=== PATIENT | male | born 1945 | race Caucasian/White ===

== ENCOUNTER 2022-07-11 18:07 | Observation (INO) ==
[2022-07-11] MEDS ORDERED: 0.9 % SODIUM CHLORIDE 2,260 ML IV ONE (18:12)
[2022-07-11] MEDS ORDERED: KETOROLAC 30 MG/ML VIAL IV ONE (18:14)
[2022-07-11 18:22] LABS: POC Calcium, Ionized 1.24 (1.16-1.32); POC Potassium 4.4 (3.3-5.1)
--- NOTE | 2022-07-11 18:24 | Emergency Department Note ---
Abdominal Pain HPI General Chief Complaint: Abdominal Pain Stated Complaint: abdominal pain Time Seen by Provider: 07/11/22 18:12 Source: patient Mode of arrival: ambulatory Limitations: no limitations History of Present Illness HPI Narrative: Narrative: Patient presents ED with complaints of worsening abdominal pain x1 day. Pain is rated 9/10 described as sharp and achy. Denies fever, chills, nausea, vomiting, diarrhea, constipation, dysuria, hematuria, urinary frequency, melena, medic easier, hematemesis, cardiac chest pain, shortness of breath, known sick contacts. Patient states that he last ate at noon this morning. Denies any [id number]-nufrbhu medication. Patient denies any other alleviating or ag gravating factors. Last bowel movement was this morning was normal caliber. Related Data Home Medications Medication Instructions Recorded Confirmed calcium carbonate-vitamin D3 500 1 cap PO QDAY 07/11/22 07/11/22 mg (1,250 mg)-50 unit capsule celecoxib 200 mg capsule 1 cap PO QDAY 07/11/22 07/11/22 hydrocodone 10 mg-acetaminophen 1 tab PO BID 07/11/22 07/11/22 325 mg tablet lisinopril 40 mg tablet 1 tab PO QDAY 07/11/22 07/11/22 rosuvastatin 20 mg tablet 1 tab PO QDAY 07/11/22 07/11/22 Allergies Allergy/AdvReac Type Severity Reaction Status Date / Time No Known Drug Allergies Allergy Unverified 07/11/22 18:10 Review of Systems ROS ROS Narrative: Narrative: All systems ED: reviewed and negative except as stated. [facility] Narrative Patient History Narrative: Narrative: Medical/Surgical/Family History All Active Problems (Updated 07/11/22 @ 19:32 by Keven Oneill DO) Sepsis (Acute) Acute appendicitis (Acute) Social History Smoking Status: Former smoker Exam Narrative Narrative: Narrative: General Limitations: no limitations General appearance: Present alert ENT ENT: Present normal oropharynx and mucous membranes moist Respiratory Respiratory: Present normal lung sounds bilaterally; Absent respiratory distress Cardiovascular Cardiovascular: Present normal rhythm and tachycardia Adbominal Abdominal: Present soft, tenderness and guarding Expanded Abdominal Abdominal Tenderness: Present RUQ, RLQ and nyla umbilical Back Back: Absent CVA tenderness (R) or CVA tenderness (L) Neurological Neurological: Present oriented X3 and normal gait Psychiatric Psychiatric: Present normal affect and normal mood Skin Skin: Present warm (WNL) and intact Course Course Course Narrative: Patient was evaluated for abdominal pain. Labs showed that he had elevated white cell count. He was tachycardic and febrile here in the ED. CT abdomen pelvis revealed acute appendicitis. Patient does meet sepsis criteria. He was started on IV fluids, Rocephin and Flagyl for antibiotics. Case discussed with on-call surgeon, Dr. Harris, who recommend the patient be admitted to the hospital, allowed to have liquid diet until midnight then n.p.o. and started on IV antibiotics. Plan was discussed with patient who expressed verbal unde rstanding and agreement. Consultations Consultation #1: Case discussed with on-call surgeon, Dr. Harris, who recommend the patient be admitted to the hospital, allowed to have liquid diet until midnight then n.p.o. and started on IV antibiotics. Time: 19:30 Vital Signs Vital signs: Vital Signs Temperature 100.3 F H 07/11/22 18:08 Pulse Rate 104 H 07/11/22 18:08 Respiratory Rate 20 07/11/22 18:08 Blood Pressure 167/96 07/11/22 18:08 Pulse Oximetry (%) 99 07/11/22 18:08 Oxygen Delivery Method 07/11/22 18:08 Temperature 100.3 F H 07/11/22 18:08 Pulse Rate 87 07/11/22 21:01 Respiratory Rate 23 H 07/11/22 21:01 Blood Pressure 117/80 07/11/22 21:01 Pulse Oximetry (%) 93 07/11/22 21:01 Oxygen Delivery Method 07/11/22 18:08 [facility] MDM Narrative Medical decision making narrative: Narrative: Sepsis Sepsis Identified: Yes Time Zero: 1814 Differential Diagnosis Differential Diagnosis: Appendicitis, small bowel obstruction, kidney stone Medical Records Medical records reviewed: Yes I reviewed the patient's medical records. Lab Data Lab results reviewed: Yes I reviewed the patient's lab results. Result diagrams: 07/11/22 18:15 Labs: Lab Results 07/11/22 07/11/22 07/11/22 Range/Units 18:15 18:15 18:15 WBC 17.5 H (4.5-11.0) K/mcL RBC 3.99 L (4.63-6.08) M/mcL Hgb 14.2 (13.7-17.5) g/dL Hct 42.6 (40.1-51.0) % POC Hct (41-55) MCV 106.8 H (80.0-100.0) fL MCH 35.6 H (26.0-34.0) pg MCHC 33.3 (31.0-36.0) g/dL RDW 12.0 (11.5-14.5) % Plt Count 159 (140-440) K/mcL MPV 10.1 (7.4-10.4) fL Immature Gran % (Auto) 0.4 (0.0-0.5) % Neut % (Auto) 79.9 H (38.0-78.0) % Lymph % (Auto) 8.1 L (15.5-49.0) % [place] % (Auto) 10.9 (1.0-12.0) % Eos % (Auto) 0.3 (0.0-7.0) % Baso % (Auto) 0.4 (0.0-2.0) % Lymph # (Auto) 1.42 L (1.50-4.80) K/mcL [place] # (Auto) 1.91 H (0.10-0.90) K/mcL Eos # (Auto) 0.05 (0.00-0.70) K/mcL Baso # (Auto) 0.07 (0.00-0.30) K/mcL Immature Gran # 0.07 H (0.00-0.05) K/mcl Absolute Neutrophils 13.99 H (1.80-8.00) K/mcL POC VBG pH (7.32-7.42) POC VBG pCO2 at Temp (41-51) POC VBG pO2 (25-40) POC VBG HCO3 (24-28) POC VBG Total CO2 (25-29) POC Venous O2 Sat (40-70) POC VBG Base Excess (-2-2) VBG Lactic Acid (0.5-2) POC Sodium (133-145) POC Potassium (3.3-5.1) POC Chloride (96-108) POC Total CO2 (22-30) POC BUN (6-20) POC Creatinine (0.6-1.2) POC Glucose (70-105) POC WB Ioniz Calcium (1.16-1.32) Total Bilirubin (0.1-1.0) mg/dL Direct Bilirubin (<0.3) mg/dL AST (<40) U/L ALT (<40) U/L Alkaline Phosphatase (39-117) U/L Total Protein (5.9-8.4) gm/dL Albumin (3.2-5.2) gm/dL Globulin (2.2-3.7) gm/dL Procalcitonin 0.13 H (<0.10) ng/mL Ethyl Alcohol mg/dL < 10.0 mg/dL Ethyl Alcohol g/dL < 0.010 (<0.010) gm/dL 07/11/22 07/11/22 07/11/22 Range/Units 18:15 18:18 18:19 WBC (4.5-11.0) K/mcL RBC (4.63-6.08) M/mcL Hgb (13.7-17.5) g/dL Hct (40.1-51.0) % POC Hct 47.0 (41-55) MCV (80.0-100.0) fL MCH (26.0-34.0) pg MCHC (31.0-36.0) g/dL RDW (11.5-14.5) % Plt Count (140-440) K/mcL MPV (7.4-10.4) fL Immature Gran % (Auto) (0.0-0.5) % Neut % (Auto) (38.0-78.0) % Lymph % (Auto) (15.5-49.0) % [place] % (Auto) (1.0-12.0) % Eos % (Auto) (0.0-7.0) % Baso % (Auto) (0.0-2.0) % Lymph # (Auto) (1.50-4.80) K/mcL [place] # (Auto) (0.10-0.90) K/mcL Eos # (Auto) (0.00-0.70) K/mcL Baso # (Auto) (0.00-0.30) K/mcL Immature Gran # (0.00-0.05) K/mcl Absolute Neutrophils (1.80-8.00) K/mcL POC VBG pH 7.38 (7.32-7.42) POC VBG pCO2 at Temp 41.0 (41-51) POC VBG pO2 24 L (25-40) POC VBG HCO3 24.1 (24-28) POC VBG Total CO2 25.0 (25-29) POC Venous O2 Sat 42.0 (40-70) POC VBG Base Excess -1.0 (-2-2) VBG Lactic Acid 1.8 (0.5-2) POC Sodium 137 (133-145) POC Potassium 4.4 (3.3-5.1) POC Chloride 104 (96-108) POC Total CO2 23.0 (22-30) POC BUN 17 (6-20) POC Creatinine 1.0 (0.6-1.2) POC Glucose 125 H (70-105) POC WB Ioniz Calcium 1.24 (1.16-1.32) Total Bilirubin 1.1 H (0.1-1.0) mg/dL Direct Bilirubin 0.3 H (<0.3) mg/dL AST 28 (<40) U/L ALT 27 (<40) U/L Alkaline Phosphatase 57 (39-117) U/L Total Protein 7.5 (5.9-8.4) gm/dL Albumin 4.5 (3.2-5.2) gm/dL Globulin 3.0 (2.2-3.7) gm/dL Procalcitonin (<0.10) ng/mL Ethyl Alcohol mg/dL mg/dL Ethyl Alcohol g/dL (<0.010) gm/dL ED POC Tests ED POC Tests: STUART - Influenza A Negative STUART - Influenza B Negative STUART - SARS Antigen Negative EKG Data EKG #1: EKG attestation: Yes I reviewed and interpreted this EKG. EKG shows normal: sinus rhythm Rate: normal (96) Rhythm: NSR Acra/QRS: normal Heart block present: None ST segment elevation in: None ST segment depression in: None QTc: normal QRS morphology: Present normal Interpretation: no acute changes Core Measures AMI Core Measures Followed: Yes Discharge Plan Patient/Caregiver Discharge Instructions Pt seen by [employer] INSTRUCTOR/PA only: No Clinical Impression: Sepsis Qualifiers: Sepsis type: sepsis due to unspecified organism Sepsis acute organ dysfunction status: without acute organ dysfunction Qualified Code(s): A41.9 - Sepsis, unspecified organism Acute appendicitis Qualifiers: Acute appendicitis type: unspecified acute appendicitis type Qualified Code(s): K35.80 - Unspecified acute appendicitis Patient Disposition: Xfer As Outpt/Obs ([facility]) Condition: Good Follow up with: Jamey Garcia DO [Primary Care Provider] - Prescriptions: No Action celecoxib 200 mg capsule 1 cap PO QDAY hydrocodone-acetaminophen 10-325 mg tablet 1 tab PO BID lisinopril 40 mg tablet 1 tab PO QDAY rosuvastatin 20 mg tablet 1 tab PO QDAY Calcium With Vitamin D3 500 mg(1,250mg) -50 unit Capsule 1 cap PO QDAY
[2022-07-11] MEDS: fentaNYL 100 MCG/2 ML VIAL IV ONE (18:34)
[2022-07-11 18:55] LABS: Basophils # (Auto) 0.07 K/mcL (0.00-0.30); Basophils % (Auto) 0.4 % (0.0-2.0); Eosinophils # (Auto) 0.05 K/mcL (0.00-0.70); Eosinophils % (Auto) 0.3 % (0.0-7.0); Hematocrit 42.6 % (40.1-51.0); Hemoglobin 14.2 g/dL (13.7-17.5); Lymphocytes # (Auto) 1.42 K/mcL (1.50-4.80); Lymphocytes % (Auto) 8.1 % (15.5-49.0); Mean Cell Volume 106.8 fL (80.0-100.0); Mean Corpuscular HGB Conc 33.3 g/dL (31.0-36.0); Mean Platelet Volume 10.1 fL (7.4-10.4); Monocytes # (Auto) 1.91 K/mcL (0.10-0.90); Monocytes % (Auto) 10.9 % (1.0-12.0); Neutrophils % (Auto) 79.9 % (38.0-78.0); Platelet Count 159 K/mcL (140-440); RBC 3.99 M/mcL (4.63-6.08); WBC 17.5 K/mcL (4.5-11.0)
[2022-07-11 19:11] LABS: Alcohol, Blood < 10.0 mg/dL; Alcohol,Blood < 0.010 gm/dL (<0.010)
--- NOTE | 2022-07-11 19:15 | XRay Report ---
CLINICAL INFORMATION: Tachycardia COMPARISON: 08/03/2021 TECHNIQUE: Portable FINDINGS: The heart size, mediastinum and pulmonary vessels are unremarkable. The lungs are clear. There are no effusions. The bones and soft tissues are within normal limits. IMPRESSION: Normal chest. Interpreted and Authenticated by: Kentrell Jackson 07/11/22
[2022-07-11 19:19] LABS: ALT/SGPT 27 U/L (<40); AST/SGOT 28 U/L (<40); Albumin 4.5 gm/dL (3.2-5.2); Alkaline Phosphatase 57 U/L (39-117); Bilirubin,Direct 0.3 mg/dL (<0.3); Bilirubin,Total 1.1 mg/dL (0.1-1.0)
[2022-07-11] MEDS ORDERED: metroNIDAZOLE 500 MG/100 ML BAG IV ONE (19:27)
[2022-07-11] MEDS ORDERED: cefTRIAXone 2 GM in DEXTROSE 5% IN WATER 50 ML IV ONE (19:27)
--- NOTE | 2022-07-11 19:27 | Cat Scan Report ---
CLINICAL INFORMATION: Right lower quadrant pain and fever COMPARISON: None. TECHNIQUE: 0.625 mm helical slices were obtained from the mid heart through the subtrochanteric regions. Following reconstruction, 2.5 mm sagittal, coronal and axial reformatted images were processed and reviewed at bone and soft tissue windows.The exam was performed using radiation dose optimization techniques including, but not limited to, automated exposure control, adjustment of the mA and/or kV according to patient size and use of iterative reconstruction technique. FINDINGS: The lung bases show chronic bronchitis and scattered fibrosis. No infiltrates or effusions. The visualized heart is grossly normal. Abdominal images show the noncontrasted gallbladder contains high density material layering dependently. This may represent multiple tiny small stones. Gallbladder is, otherwise, normal as no wall thickening or pericholecystic fluid to suggest cholecystitis. Intrahepatic and common bile ducts are normal caliber: CBD is 6 mm. The noncontrasted liver, both adrenal glands, spleen, pancreas and aorta are normal in size, configuration and attenuation without focal lesion. 5 cm simple cyst seen inferior pole the left kidney 1.9 cm simple simple cyst seen inferior pole the right kidney. There is a 10 mm hyperdense cyst, or less likely, solid lesion in the superior pole of the left kidney. A 3 mm nonobstructing stone is seen within the mid left knee. There is no free air, free fluid or adenopathy Pelvic images show moderate prostate enlargement with transverse dimension of 5.5 cm. There is mild diffuse wall thickening urinary bladder suggesting chronic bladder outlet narrowing due to prostatism. Multiple sigmoid diverticula appreciated, but no evidence of diverticulitis. The remaining large bowel is normal. The inferior pericecal appendix is moderately dilated (diameter 12 mm) with diffuse wall thickening with periappendiceal phlegmon most prominent region in the tip region. A few appendicoliths are seen within the lumen. Findings compatible with simple appendicitis. Small bowel and stomach are grossly normal. Bone windows show L5-S1 anterior/posterior fusion with 10 mm L5 anterior subluxation. Chronic bilateral spondylitic defects noted. Severe degenerative disc disease L3-4, L4-5 and L5-S1 IMPRESSION: 1. Appendicitis. Appendix is located in the inferior/ lateral pericecal region. 2. Possible cholelithiasis. Suggest abdominal ultrasound to evaluate the gallbladder and also the hyperdense cyst versus solid lesion superior pole the left kidney 3. Bilateral renal cysts 4. Chronic bronchitis with scattered fibrosis both lung bases. 5. Moderate prostate enlargement Interpreted and Authenticated by: Kentrell Jackson 07/11/22
[2022-07-11] MEDS ORDERED: ONDANSETRON 4 MG/2 ML VIAL IV ONE (19:35)
[2022-07-11] MEDS ORDERED: NALOXONE HCL 0.4 MG/ML VIAL IV PRN (19:35)
[2022-07-11] MEDS ORDERED: ACETAMINOPHEN 1,000 MG/100 ML BAG IV PRN (20:42)
[2022-07-11] MEDS ORDERED: ONDANSETRON 4 MG/2 ML VIAL IV PRN (20:42)
[2022-07-11 21:34] LABS: Prothrombin Time 13.2 sec (11.9-14.5)
[2022-07-11] MEDS: morphine 2 MG/ML VIAL IV PRN (21:53)
[2022-07-11] MEDS: 0.9 % SODIUM CHLORIDE 1,000 ML IV SCH (21:54)
[2022-07-12] MEDS: morphine 2 MG/ML VIAL IV PRN ×7 (01:57→22:01)
[2022-07-12] MEDS: metroNIDAZOLE 500 MG/100 ML BAG IV SCH ×4 (03:50→22:51)
[2022-07-12] MEDS: 0.9 % SODIUM CHLORIDE 1,000 ML IV SCH ×3 (05:22→16:14)
[2022-07-12 05:49] LABS: Basophils # (Auto) 0.05 K/mcL (0.00-0.30); Basophils % (Auto) 0.5 % (0.0-2.0); Eosinophils # (Auto) 0.13 K/mcL (0.00-0.70); Eosinophils % (Auto) 1.3 % (0.0-7.0); Hematocrit 35.9 % (40.1-51.0); Hemoglobin 11.6 g/dL (13.7-17.5); Lymphocytes # (Auto) 1.23 K/mcL (1.50-4.80); Lymphocytes % (Auto) 11.8 % (15.5-49.0); Mean Cell Volume 108.5 fL (80.0-100.0); Mean Corpuscular HGB Conc 32.3 g/dL (31.0-36.0); Mean Platelet Volume 9.8 fL (7.4-10.4); Monocytes # (Auto) 1.19 K/mcL (0.10-0.90); Monocytes % (Auto) 11.4 % (1.0-12.0); Neutrophils % (Auto) 74.7 % (38.0-78.0); Platelet Count 119 K/mcL (140-440); RBC 3.31 M/mcL (4.63-6.08); Red Cell Distribution Width 12.4 % (11.5-14.5); WBC 10.4 K/mcL (4.5-11.0)
[2022-07-12 06:08] LABS: ALT/SGPT 17 U/L (<40); AST/SGOT 18 U/L (<40); Albumin 3.3 gm/dL (3.2-5.2); Albumin/Globulin Ratio 1.4 (1.0-2.3); Alkaline Phosphatase 40 U/L (39-117); Bilirubin,Direct 0.2 mg/dL (<0.3); Bilirubin,Total 0.8 mg/dL (0.1-1.0); Blood Urea Nitrogen 15 mg/dL (8-23); Calcium 8.3 mg/dL (8.6-10.4); Carbon Dioxide 22 mmol/L (22-30); Chloride 105 mmol/L (96-108); Globulin 2.4 gm/dL (2.2-3.7); Glomerular Filtration Rate 82; Glucose 98 mg/dL (70-105); Lactate Dehydrogenase 118 U/L (135-225); Phosphorous 3.2 mg/dL (2.5-4.5); Triglycerides 58 mg/dL (<150); Uric Acid 4.9 mg/dL (2.5-8.0)
[2022-07-12] MEDS ORDERED: cefTRIAXone 2 GM in DEXTROSE 5% IN WATER 50 ML IV SCH (07:00)
[2022-07-12] MEDS ORDERED: cefTRIAXone 2 GM VIAL ONE (07:22)
--- NOTE | 2022-07-12 07:51 | General Surg History&Physical ---
HPI History of Present Illness Patient information: Note initiated : 07/12/22 at 7:42 am Service Date, if different from initiated Date: [] Patient: Jamey Thrasher a 76 y/o M admitted on 07/11/22 for abdominal pain. Chief Complaint: [] Chief complaint: Right lower quadrant pain History of present illness: Mr. Thrasher is a 76 year old M with acute onset of right lower quadrant abdominal pain on Tuesday night after his evening meal. The pain became progressively worse yesterday and he was seen in the emergency room late last evening. He was noted to have a white count of 17,000 and CVAT evidence of acute appendicitis with appendicolith. He was admitted to observation and has been on antibiotics. White blood count has returned to normal. He is afebrile at this time. Patient never had nausea or vomiting. He has not had similar pain in the past. 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 Father , World War II casualty No problems noted. Social History smoking status: Former smoker MEDS/ALLERGIES Home Medications and Allergies Home Medications Medication Instructions Recorded Confirmed Type calcium carbonate-vitamin D3 500 1 cap PO QDAY 07/11/22 07/11/22 History mg (1,250 mg)-50 unit capsule celecoxib 200 mg capsule 1 cap PO QDAY 07/11/22 07/11/22 History hydrocodone 10 mg-acetaminophen 1 tab PO BID PRN Pain 07/11/22 07/11/22 History 325 mg tablet lisinopril 40 mg tablet 1 tab PO QDAY 07/11/22 07/11/22 History rosuvastatin 20 mg tablet 1 tab PO QDAY 07/11/22 07/11/22 History Allergies Allergy/AdvReac Type Severity Reaction Status Date / Time No Known Drug Allergies Allergy Verified 07/11/22 21:49 Physical Examination Vital Signs Vital signs: Temp Pulse Resp BP Pulse Ox O2 Del Method 97.9 F 83 18 117/73 96 07/12/22 07:26 07/12/22 07:26 07/12/22 07:26 07/12/22 07:26 07/12/22 07:26 07/12/22 07:26 General physical appearance General physical exam: well developed, well nourished, no distress and moderate pain Eyes Eye exam: PERRL and normal ocular movement ENT ENT exam: normal mucosa Head Head exam IM: Present atraumatic, normal inspection and normocephalic Neck Neck exam: no masses, no bruits, trachea midline, no lymphadenopathy and no venous distension Cardiovascular Cardiovascular exam IM: Present normal rate and rhythm, RRR, +S1 and +S2; Absent JVD or tachycardia Respiratory Respiratory exam: normal expansion, normal respiratory effort and clear to auscultation Abdomen Abdomen: Present tender (Right lower quadrant moderate tenderness with guarding) Integumentary Integumentary: Present no rash, no growths, no abnormal pigmentation and other Neurologic Neurologic: Present normal coordination and normal sensation Musculoskeletal Musculoskeletal: Present normal gait and normal posture Psychiatric Psychiatric: Present oriented to time, oriented to person, oriented to place, speech is normal and memory intact Results Labs Result diagrams: 07/12/22 05:15 07/12/22 05:15 Labs: Abnormal lab results 07/11/22 07/11/22 07/11/22 Range/Units 18:15 18:15 18:15 WBC 17.5 H (4.5-11.0) K/mcL RBC 3.99 L (4.63-6.08) M/mcL Hgb (13.7-17.5) g/dL Hct (40.1-51.0) % MCV 106.8 H (80.0-100.0) fL MCH 35.6 H (26.0-34.0) pg Plt Count (140-440) K/mcL Neut % (Auto) 79.9 H (38.0-78.0) % Lymph % (Auto) 8.1 L (15.5-49.0) % Lymph # (Auto) 1.42 L (1.50-4.80) K/mcL [place] # (Auto) 1.91 H (0.10-0.90) K/mcL Immature Gran # 0.07 H (0.00-0.05) K/mcl Absolute Neutrophils 13.99 H (1.80-8.00) K/mcL POC VBG pO2 (25-40) POC Glucose (70-105) Calcium (8.6-10.4) mg/dL Total Bilirubin 1.1 H (0.1-1.0) mg/dL Direct Bilirubin 0.3 H (<0.3) mg/dL Lactate Dehydrogenase (135-225) U/L Total Protein (5.9-8.4) gm/dL Procalcitonin 0.13 H (<0.10) ng/mL 07/11/22 07/11/22 07/12/22 Range/Units 18:18 18:19 05:15 WBC (4.5-11.0) K/mcL RBC 3.31 L (4.63-6.08) M/mcL Hgb 11.6 L (13.7-17.5) g/dL Hct 35.9 L (40.1-51.0) % MCV 108.5 H (80.0-100.0) fL MCH 35.0 H (26.0-34.0) pg Plt Count 119 L (140-440) K/mcL Neut % (Auto) (38.0-78.0) % Lymph % (Auto) 11.8 L (15.5-49.0) % Lymph # (Auto) 1.23 L (1.50-4.80) K/mcL [place] # (Auto) 1.19 H (0.10-0.90) K/mcL Immature Gran # (0.00-0.05) K/mcl Absolute Neutrophils (1.80-8.00) K/mcL POC VBG pO2 24 L (25-40) POC Glucose 125 H (70-105) Calcium (8.6-10.4) mg/dL Total Bilirubin (0.1-1.0) mg/dL Direct Bilirubin (<0.3) mg/dL Lactate Dehydrogenase (135-225) U/L Total Protein (5.9-8.4) gm/dL Procalcitonin (<0.10) ng/mL 07/12/22 Range/Units 05:15 WBC (4.5-11.0) K/mcL RBC (4.63-6.08) M/mcL Hgb (13.7-17.5) g/dL Hct (40.1-51.0) % MCV (80.0-100.0) fL MCH (26.0-34.0) pg Plt Count (140-440) K/mcL Neut % (Auto) (38.0-78.0) % Lymph % (Auto) (15.5-49.0) % Lymph # (Auto) (1.50-4.80) K/mcL [place] # (Auto) (0.10-0.90) K/mcL Immature Gran # (0.00-0.05) K/mcl Absolute Neutrophils (1.80-8.00) K/mcL POC VBG pO2 (25-40) POC Glucose (70-105) Calcium 8.3 L (8.6-10.4) mg/dL Total Bilirubin (0.1-1.0) mg/dL Direct Bilirubin (<0.3) mg/dL Lactate Dehydrogenase 118 L (135-225) U/L Total Protein 5.7 L (5.9-8.4) gm/dL Procalcitonin (<0.10) ng/mL Diabetes panel 07/11/22 07/12/22 Range/Units 18:15 05:15 Sodium 135 (133-145) mmol/L Potassium 4.3 (3.3-5.1) mmol/L Chloride 105 (96-108) mmol/L Carbon Dioxide 22 (22-30) mmol/L BUN 15 (8-23) mg/dL Creatinine 0.9 (0.7-1.2) mg/dL Glucose 98 (70-105) mg/dL Calcium 8.3 L (8.6-10.4) mg/dL AST 28 18 (<40) U/L ALT 27 17 (<40) U/L Alkaline Phosphatase 57 40 (39-117) U/L Total Protein 7.5 5.7 L (5.9-8.4) gm/dL Albumin 4.5 3.3 (3.2-5.2) gm/dL Triglycerides 58 (<150) mg/dL Calcium panel 07/11/22 07/12/22 Range/Units 18:15 05:15 Calcium 8.3 L (8.6-10.4) mg/dL Phosphorus 3.2 (2.5-4.5) mg/dL Albumin 4.5 3.3 (3.2-5.2) gm/dL Pituitary panel 07/12/22 Range/Units 05:15 Sodium 135 (133-145) mmol/L Potassium 4.3 (3.3-5.1) mmol/L Chloride 105 (96-108) mmol/L Carbon Dioxide 22 (22-30) mmol/L BUN 15 (8-23) mg/dL Creatinine 0.9 (0.7-1.2) mg/dL Glucose 98 (70-105) mg/dL Calcium 8.3 L (8.6-10.4) mg/dL Adrenal panel 07/11/22 07/12/22 Range/Units 18:15 05:15 Sodium 135 (133-145) mmol/L Potassium 4.3 (3.3-5.1) mmol/L Chloride 105 (96-108) mmol/L Carbon Dioxide 22 (22-30) mmol/L BUN 15 (8-23) mg/dL Creatinine 0.9 (0.7-1.2) mg/dL Glucose 98 (70-105) mg/dL Calcium 8.3 L (8.6-10.4) mg/dL Total Bilirubin 1.1 H 0.8 (0.1-1.0) mg/dL AST 28 18 (<40) U/L ALT 27 17 (<40) U/L Alkaline Phosphatase 57 40 (39-117) U/L Total Protein 7.5 5.7 L (5.9-8.4) gm/dL Albumin 4.5 3.3 (3.2-5.2) gm/dL All other labs normal. A/P Assessment and plan (1) Acute appendicitis: Status: Acute Qualifiers: Acute appendicitis type: unspecified acute appendicitis type Qualified Code(s): K35.80 - Unspecified acute appendicitis (2) Hypertension: Status: Acute Plan Continue antibiotics Continue n.p.o. Laparoscopic appendectomy later today Sepsis Sepsis Identified: No Time Spent With Patient Time: Total time spent is greater than 50% in coordination of care (as documented) at patient's floor/unit and/or counseling patient:
--- NOTE | 2022-07-12 08:59 | EKG ---
[facility] Minor Care Test Date: 2022-07-11 Pat Name: Jamey Thrasher Department: ED Room: Gender: Male [employer]: vania : 1945 Requested By: Keven Oneill Order Number: [id number] Reading MD: Kentrell Aiken M.D. Measurements Intervals [place] Rate: 96 P: 54 OR: 147 QRS: 23 QRSD: 89 T: 60 QT: 354 QTc: 448 Interpretive Statements Sinus rhythm Low voltage, extremity leads Electronically Signed On 07-12-2022 8:58:34 PDT by Kentrell Aiken M.D. /store/[email or web address]/[id number]
[2022-07-12] MEDS ORDERED: IPRATROPIUM/ALBUTEROL 3 ML AMPUL.NEB NEB PRN ×2 (09:08→14:41)
[2022-07-12] MEDS ORDERED: PROPOFOL 200 MG/20 ML VIAL IV ONE (12:55)
[2022-07-12] MEDS ORDERED: ONDANSETRON 4 MG/2 ML VIAL ONE (12:55)
[2022-07-12] MEDS ORDERED: SUGAMMADEX SODIUM 200 MG/2 ML VIAL IV ONE (12:55)
[2022-07-12] MEDS ORDERED: SUCCINYLCHOLINE 20 MG/ML ML IV ONE (12:55)
[2022-07-12] MEDS ORDERED: DEXAMETHASONE 10 MG/ML VIAL ONE (12:55)
[2022-07-12] MEDS ORDERED: ROCURONIUM 10 MG/ML ML IV ONE (12:55)
[2022-07-12] MEDS ORDERED: fentaNYL 100 MCG/2 ML VIAL IV ONE (12:55)
[2022-07-12] MEDS ORDERED: KETAMINE 50 MG/ML Syringe (ANEST) IV ONE (12:55)
[2022-07-12] MEDS ORDERED: GLYCOPYRROLATE 0.2 MG/ML VIAL IV ONE (12:55)
[2022-07-12] MEDS ORDERED: LIDOCAINE HCL/PF 100 MG/5 ML SYRINGE IV ONE (12:55)
[2022-07-12] MEDS ORDERED: PHENYLephrine 1 MG/10 ML SYRINGE (ANEST) ONE (12:55)
--- NOTE | 2022-07-12 14:31 | Brief Operative Note ---
Brief Operative Note Date of procedure: 07/12/22 Pre-op diagnosis: ACUTE APPENDICITIS Post-op diagnosis: other (ACUTE APPENDICITIS) Procedure: LAPAROSCOPIC APPENDECTOMY Grafts/Implants: No (MARYANNE DRAINX1) Anesthesia: GETA Findings: ACUTE GANGRENOUS APPENDICITIS Complications: none Surgeon: Kayla Harris Estimated blood loss (cc): 30 Specimens Removed/Pathology: other (APPENDIX) Condition: stable Disposition: PACU
[2022-07-12] MEDS ORDERED: HYDROmorphone 0.5 MG/0.5 ML SYRINGE IV PRN (14:41)
[2022-07-12] MEDS ORDERED: MEPERIDINE 25 MG/ML VIAL IV PRN (14:41)
[2022-07-12] MEDS ORDERED: ACETAMINOPHEN 1,000 MG/100 ML BAG IV ONE (14:41)
[2022-07-12] MEDS: fentaNYL 100 MCG/2 ML VIAL IV ONE (15:15)
[2022-07-12] MEDS: fentaNYL 100 MCG/2 ML VIAL IV PRN ×4 (15:15→15:34)
[2022-07-12] MEDS ORDERED: PIPERACILLIN SODIUM/TAZOBACTAM 3.375 GM in DEXTROSE 5% IN WATER 50 ML IV SCH (16:19)
[2022-07-12] MEDS: PIPERACILLIN SODIUM/TAZOBACTAM 3.375 GM in DEXTROSE 5% IN WATER 50 ML IV SCH ×2 (16:35→21:12)
[2022-07-12] MEDS ORDERED: CALCIUM CARBONATE 500 MG TAB.CHEW CHEWED PRN (20:39)
[2022-07-13] MEDS: 0.9 % SODIUM CHLORIDE 1,000 ML IV SCH (00:48)
[2022-07-13] MEDS: PIPERACILLIN SODIUM/TAZOBACTAM 3.375 GM in DEXTROSE 5% IN WATER 50 ML IV SCH ×3 (00:48→12:17)
[2022-07-13] MEDS: morphine 2 MG/ML VIAL IV PRN ×3 (00:49→10:35)
[2022-07-13] MEDS: metroNIDAZOLE 500 MG/100 ML BAG IV SCH (06:10)
[2022-07-13] MEDS ORDERED: PANTOPRAZOLE 40 MG TABLET PO SCH (07:30)
[2022-07-13] MEDS: LISINOPRIL 20 MG TABLET PO SCH ×2 (08:37→08:39)
--- NOTE | 2022-07-13 13:43 | Discharge Summary ---
Discharge Provider Provider IMPORTANT FOLLOW-UP INFORMATION FOR PCP: Patient information: Note initiated : 07/13/22 at 1:36 pm Service Date, if different from initiated Date: [] Patient: Jamey Thrasher 76 y/o M admitted on 07/11/22 for abdominal pain. Chief Complaint: [] Date of admission: 07/11/22 21:13 Discharge date: 07/13/22 Primary care physician: Jamey Garcia DO Admitting clinician: Kayla Harris Attending physician on admission: Kayla Harris Attending physician on discharge: Kayla Harris Discharging clinician: Kayla Harris COURSE Hospital Course Hospital course: 76-year-old male who was admitted on 10 July 2022 with acute abdominal pain leukocytosis and evidence of acute appendicitis. She was treated during the night and had laparoscopic appendectomy on yesterday. He was found to have acute gangrenous appendicitis. Because of acute severe inflammation in the pericecal space drain was placed. He has had some bloody drainage but otherwise has done well. He is stable for discharge and will be followed up in the office in 2 weeks. Discharge diagnosis: Acute gangrenous appendicitis Secondary discharge diagnosis: Hypertension Reason for admission: Acute appendicitis Procedures: Laparoscopic appendectomy Pertinent studies/significant findings: CT of abdomen and pelvis with IV contrast Complications: None Time Spent with Patient Time attestation: Total time spent providing and/or coordinating discharge services: Time spent: Less than 30 minutes Physical Examination Vital Signs Vital signs: Temp Pulse Resp BP Pulse Ox O2 Del Method O2 Flow Rate 97.5 F 56 L 22 117/65 98 0 07/13/22 12:07/13/22 12:07/13/22 12:07/13/22 12:07/13/22 12:07/13/22 12:07/12/22 15:35 General physical appearance General physical exam: well developed, well nourished, no distress and moderate pain Eyes Eye exam: PERRL and normal ocular movement ENT ENT exam: normal mucosa and decreased hearing Head Head exam IM: Present atraumatic, normal inspection and normocephalic Neck Neck exam: no masses, no bruits, trachea midline, no lymphadenopathy and no venous distension Cardiovascular Cardiovascular exam IM: Present normal rate and rhythm, RRR, +S1 and +S2; Absent JVD Respiratory Respiratory exam: normal expansion, normal respiratory effort and clear to auscultation Abdomen Abdomen: Present tender (Mild tenderness around port sites) and bowel sounds (Normal active bowel sounds) Integumentary Integumentary: Present no rash, no growths and no abnormal pigmentation Neurologic Neurologic: Present normal coordination and normal sensation Musculoskeletal Musculoskeletal: Present normal gait and normal posture Psychiatric Psychiatric: Present oriented to time, oriented to person, oriented to place, speech is normal and memory intact Discharge Plan Patient/Caregiver Discharge Instructions Activity: increase activity as tolerated Diet: Regular Diet Instructions: Ciprofloxacin (By mouth), Metronidazole (By mouth), Laparoscopic Appendectomy (DC) Activity Restrictions/Additional Instructions: Resume home diet as tolerated Increase activity as tolerated Keep surgical site clean, dry and intact until follow-up with Dr. Harris. May shower remove tegaderm and shower in two days. Do not apply lotion or soap directly to surgical site. Take all medication as directed Some of your medications have been electronically transmitted to [facility]. Take your photo ID and insurance cards to pharmacy picking technician your medications. Return to ER for fever, chills, uncontrolled pain, inability to urinate or have a bowel movement, nausea and/or vomiting, swelling, redness, signs of infection, shortness of breath, chest pain, return of symptoms, or other acute symptom. This discharge packet is provided to you to help keep you informed about your care. We want to ensure you get everything you need when you go home. You will also be receiving a call from us in a few days to follow up with you and see how you are doing since your discharge. This gives us a chance to listen to any concerns you maybe experiencing since you were discharged or any additional needs you may have, as well as providing us feedback on your care experience. We strive to always provide excellent care and thank you for your feedback and for choosing [facility]. Prescriptions: New ciprofloxacin HCl [ciprofloxacin HCl] 500 mg tablet 500 mg PO BID Qty: 30 0RF metronidazole 500 mg tablet 500 mg PO Q8H Qty: 50 0RF Continued celecoxib 200 mg capsule 1 cap PO QDAY hydrocodone-acetaminophen 10-325 mg tablet 1 tab PO BID PRN (Reason: Pain) lisinopril 40 mg tablet 1 tab PO QDAY rosuvastatin 20 mg tablet 1 tab PO QDAY calcium carbonate-vitamin D3 500 mg(1,250mg) -50 unit Capsule 1 cap PO QDAY Follow Up Plan Follow up with: Jamey Garcia DO [Primary Care Provider] - (Follow-up as needed. Contact the office to schedule an appointment) Kayla Harris MD [Physician] - 08/03/22 10:45 am Patient Disposition: Home, Self-Care Plan of Treatment: Continue ciprofloxacin and metronidazole x2 weeks Prognosis: Good Rehab Potential: Good I certify that the patient requires SNF services: No Overall status at discharge: patient is progressing back to baseline Discharge Orders: Discharge Order (Routine); Ordered 07/13/22 Ordered By: Kayla Harris Pending Pending Pending: Resuscitation Status Resuscitate (Full Code) Diet Regular Diet Start TueJul 13 0500 Calcium Carbonate/Glycine (Calcium Carbonate 500 Mg Tab.Chew) 500 mg CHEWED Q4HP PRN PRN Reason: Dyspepsia Last Admin: 07/12/22 20:50 Dose: 500 mg Documented By: VINNY Sodium Chloride (Sodium Chloride 0.9%) 1,000 mls @ 100 mls/hr IV .Q10H FAHEEM Last Admin: 07/13/22 00:48 Dose: 100 mls/hr Documented By: Infusion: 07/12/22 19:04 Dose: 100 mls/hr Documented By: Admin: 07/12/22 16:14 Dose: Not Given Documented By: Admin: 07/12/22 09:04 Dose: 100 mls/hr Documented By: Infusion: 07/12/22 09:03 Dose: 0 mls/hr Documented By: Admin: 07/12/22 05:22 Dose: Not Given Documented By: Admin: 07/11/22 21:54 Dose: 100 mls/hr Documented By: VINNY Metronidazole (Flagyl) 500 mg in 100 mls @ 100 mls/hr IV Q8H FAHEEM; Protocol Last Admin: 07/13/22 06:10 Dose: 100 mls/hr Documented By: Infusion: 07/12/22 23:52 Dose: 0 mls/hr Documented By: Admin: 07/12/22 22:51 Dose: 100 mls/hr Documented By: Infusion: 07/12/22 18:15 Dose: 0 mls/hr Documented By: Admin: 07/12/22 17:11 Dose: 100 mls/hr Documented By: Infusion: 07/12/22 11:27 Dose: 0 mls/hr Documented By: Admin: 07/12/22 10:13 Dose: 100 mls/hr Documented By: Infusion: 07/12/22 04:50 Dose: 0 mls/hr Documented By: Admin: 07/12/22 03:50 Dose: 100 mls/hr Documented By: VINNY Acetaminophen (Ofirmev) 1,000 mg in 100 mls @ 200 mls/hr IV Q6HP PRN; Protocol PRN Reason: Per Pain Protocol/Fever > 101 Last Infusion: 07/13/22 11:10 Dose: 0 mls/hr Documented By: Admin: 07/13/22 10:36 Dose: 200 mls/hr Documented By: OPAL Piperacillin Sod/Tazobactam (Sod 3.375 gm/ Dextrose) 50 mls @ 100 mls/hr IV Q6H FAHEEM; Protocol Last Admin: 07/13/22 12:17 Dose: 50 mls/hr Documented By: Infusion: 07/13/22 06:32 Dose: 0 mls/hr Documented By: Admin: 07/13/22 05:32 Dose: 50 mls/hr Documented By: Infusion: 07/13/22 01:49 Dose: 0 mls/hr Documented By: Admin: 07/13/22 00:48 Dose: 50 mls/hr Documented By: Infusion: 07/12/22 22:12 Dose: 0 mls/hr Documented By: Admin: 07/12/22 21:12 Dose: 50 mls/hr Documented By: Infusion: 07/12/22 17:12 Dose: 0 mls/hr Documented By: Admin: 07/12/22 16:35 Dose: 100 mls/hr Documented By: [email or web address] Lisinopril (Lisinopril 20 Mg Tablet) 40 mg PO DAILY [facility] Last Admin: 07/13/22 08:39 Dose: Not Given Documented By: OPAL Morphine Sulfate (Morphine 2 Mg/Ml Vial) 2 mg IV Q2HP PRN; Protocol PRN Reason: Per Pain Protocol Last Admin: 07/13/22 10:35 Dose: 2 mg Documented By: [email or web address] Admin: 07/13/22 05:33 Dose: 2 mg Documented By: Admin: 07/13/22 00:49 Dose: 2 mg Documented By: Admin: 07/12/22 22:01 Dose: 2 mg Documented By: [email or web address] Admin: 07/12/22 19:31 Dose: 2 mg Documented By: Admin: 07/12/22 16:35 Dose: 2 mg Documented By: Admin: 07/12/22 10:13 Dose: 2 mg Documented By: Admin: 07/12/22 07:43 Dose: 2 mg Documented By: Admin: 07/12/22 05:26 Dose: 2 mg Documented By: Admin: 07/12/22 01:57 Dose: 2 mg Documented By: Admin: 07/11/22 21:53 Dose: 2 mg Documented By: VINNY Pantoprazole Sodium (Pantoprazole 40 Mg Tablet) 40 mg PO BIDAC [facility] Last Admin: 07/13/22 08:37 Dose: 40 mg Documented By: [email or web address] Shift Summary 07/13/22 01:42 Shift Summary by Mary Ann Mayfield Primary Diagnosis: Sepsis, Acute Appendicitis Registration Status: OBS Date of Surgery (if applicable): 07/12/22, Lap Appendectomy Pertinent Medical Dx/Issue(s): Back surgery, RTKA Med management (antibiotics, diuretics, BP): IV fluids, pain meds, Flagyl, Zosyn. X2 abd lap sites with anette, X1 PRISCILA drain Vital Signs with Trends: VSS O2, liter flow/saturations: RA Pain management (acute vs. chronic): X4 Morphine, X1 Ofirmev, X1 tums Lab/Rad (abnormals, trends): CA 8.3 Neuro/Mental Status: A&OX4 Urinary Elimination Device: Urinal Urinary output greater than 30mL/hr? yes Date of last BM: 07/11/22 Lines/Tubes: 20g RF infusing NS @100ml/hr Activity: SBA Discharge Plan (needs, disposition, etc): TBD Initialized on 07/13/22 01:42 - END OF NOTE
--- NOTE | 2022-08-09 14:14 | Operative Note ---
DATE OF OPERATION: 07/12/2022 DATE OF PROCEDURE: 07/12/2022 PREOPERATIVE DIAGNOSIS: Acute appendicitis. POSTOPERATIVE DIAGNOSIS: Acute appendicitis. PROCEDURE: Laparoscopic appendectomy. SURGEON: Kayla Harris M.D. FINDINGS: Acute gangrenous appendicitis. DESCRIPTION OF PROCEDURE: Under general anesthesia, patient's abdomen was prepped and draped in a sterile field. A supraumbilical incision was made. Veress needle was inserted uneventfully. Abdomen was insufflated with 2 liters of CO2. A 12 mm port was placed. Laparoscope was placed. The patient was positioned. Under videoscopic guidance, a 5 mm port was placed in the suprapubic midline. A 12 mm port was placed in the left lower quadrant. The appendix was found medial to the cecum. It was severely inflamed and gangrenous. Using blunt dissection, it was serially dissected. The base was divided with the Endo BISI stapler. The mesoappendix was divided with an Endo BISI stapler. The appendix was placed in the EndoCatch device and removed. Irrigation was carried out. A Reginald drain was placed in the right gutter and brought out through the suprapubic midline incision. Irrigation was carried out. CO2 was allowed to escape from the abdomen and the ports were removed. The fascia at the umbilicus was closed with 0 Vicryl. Skin incisions were closed with anette. The drain was secured with 2-0 nylon. The patient tolerated the procedure well. Tegaderm dressings were placed. He was awakened, transferred to a bed, and taken to the postanesthetic care unit in satisfactory condition. LCS:osman Job ID: [id number] Doc ID: [id number] Kayla Harris M.D.
== END 2022-07-13 15:37 | disposition home or self-care (01) ==
LOC: MEDSUR 18:07 → ED 18:07 → MEDSUR 21:10
PROVIDERS: ADMIT Family Medicine Adult Medicine; ATTEND Family Medicine Adult Medicine